=== PATIENT | female | born 1995 | race Caucasian/White ===

== ENCOUNTER 2019-05-13 09:31 | Emergency (ER) | payer BC ==
[2019-05-13 10:45] VITALS: BP 124/76
--- NOTE | 2019-05-13 10:59 | UC ---
Lower Extremity/Ankle HPI - HPI Summary HPI Summary: 23-year-old female who states her right ankle gave out today. She sprained it approximately 3 weeks ago, followed up at a different urgent care and had a negative x-ray. She did not follow-up with an orthopedist. - History of Current Complaint Chief Complaint: UCLowerExtremity Stated Complaint: R ANKLE INJURY Time Seen by Provider: 05/13/19 10:56 Hx Obtained From: Patient Hx Last Menstrual Period: last month ?: No Onset/Duration: Sudden Onset Severity Initially: Mild Severity Currently: Mild Pain Intensity: 4 Aggravating Factor(s): Ambulation Alleviating Factor(s): Rest Able to Bear Weight: Yes - Allergies/Home Medications Allergies/Adverse Reactions: Allergies Allergy/AdvReac Type Severity Reaction Status Date / Time "an oxy" after surgery Allergy Hives Uncoded 05/13/19 10:44 Home Medications: Home Medications Bupropion XL* [Wellbutrin XL *] 1 tab PO DAILY 05/13/19 [History Confirmed 05/13] Green Tea Extract 1 dose PO ONCE 05/13/19 [History Confirmed 05/13/19] Ibuprofen 400 mg PO ONCE PRN 05/13/19 [History Confirmed 05/13/19] Lisdexamfetamine Dimesylate [Vyvanse] 1 tab PO DAILY 05/13/19 [History Confirmed 05/13/19] QUEtiapine TAB* [Seroquel 100 MG *] 50 mg PO DAILY 05/13/19 [History Confirmed 05/13/19] Sertraline HCl [Zoloft] 150 mg PO DAILY 05/13/19 [History Confirmed 05/13/19] PMH/Surg Hx/FS Hx/Imm Hx Previously Healthy: Yes - Surgical History Surgical History: Yes Surgery Procedure, Year, and Place: sinus/nasal surgery - Family History Known Family History: Positive: Non-Contributory - Social History Alcohol Use: Weekly Substance Use Type: None Smoking Status (MU): Never Smoked Tobacco Review of Systems All Other Systems Reviewed And Are Negative: Yes Skin: Positive: Bruising - Mild bruising around her ankle which appears old. Motor: Positive: Negative Neurovascular: Positive: Negative Musculoskeletal: Positive: Negative Neurological: Positive: Negative Is Patient Immunocompromised?: No Physical Exam Triage Information Reviewed: Yes Appearance: Well-Appearing, No Pain Distress, Well-Nourished Vital Signs: Initial Vital Signs Temp 98.3 F 05/13/19 10:40 Pulse 92 05/13/19 10:40 Resp 18 05/13/19 10:40 BP 124/76 05/13/19 10:40 Pulse Ox 100 05/13/19 10:40 Vital Signs Reviewed: Yes Musculoskeletal: Positive: Strength Intact, ROM Intact - Achilles is intact. Mild swelling to the lateral right ankle. Patient has some mild bruising which is old around the ankle. The base of the first and fifth metatarsals are nontender. Neurological: Positive: Alert, Muscle Tone Normal Psychological Exam: Normal Skin: Positive: Other - See above notes Lower Extremity Course/Dx - Course Course Of Treatment: Right ankle x-ray:VIEWS: 3, Frontal, lateral, and oblique views of the right ankle FINDINGS: BONE DENSITY: Normal. BONES: There is no displaced fracture. JOINTS: There is no arthropathy. There is a joint effusion. ALIGNMENT: There is no dislocation. SOFT TISSUES: Unremarkable. OTHER FINDINGS: None. IMPRESSION: JOINT EFFUSION. NO ACUTE OSSEOUS INJURY. IF SYMPTOMS PERSIST, RECOMMEND REPEAT IMAGING. The patient has her own ankle splint and she is to apply that and wear that for comfort. I did advise her to that if her ankle feels unsteady or feels like is giving out frequently she needs to follow-up with the orthopedist for further care. She is in agreement with this plan of action. - Differential Dx/Diagnosis Provider Diagnosis: Right ankle sprain Discharge ED - Sign-Out/Discharge Documenting (check all that apply): Patient Departure All imaging exams completed and their final reports reviewed: Yes - Discharge Plan Condition: Good Disposition: HOME Patient Education Materials: Ankle Sprain (DC) Referrals: No Primary Care Phys,NOPCP [Primary Care Provider] - Miryam Lentz MD [Medical Doctor] - Additional Instructions: Continue to wear your splint. Apply ice intermittently and elevate as much as possible. May ambulate as pain permits. Definite follow-up with an orthopedist if you're ankle continues to give out easily. - Billing Disposition and Condition Condition: GOOD Disposition: Home
== END 2019-05-13 12:00 | disposition home or self-care (01) ==
LOC: UCEAST 09:31
DX: S93.401A Sprain of unspecified ligament of right ankle, initial encounter (principal); Z91.09 Other allergy status, other than to drugs and biological substances; X58.XXXA Exposure to other specified factors, initial encounter; Y92.9 Unspecified place or not applicable
CPT/HCPCS: 99211; G0463

== ENCOUNTER 2019-06-08 10:17 | Emergency (ER) | payer BC ==
--- NOTE | 2019-06-08 11:58 | ED ---
Syncope/Near Syncope - HPI Summary HPI Summary: Patient is a 23 y/o F presenting to the ED for a chief complaint of syncope that occurred the morning of 06/08/19. Patient notes she felt dizziness, lightheadedness, headache, nausea, and vomiting prior to having a syncopal episode. She reports having 2-3 episodes of vomiting and having a headache that lasted 2 hours before resolving. Patient is unsure if she lost consciousness and states the syncopal episode was unwitnessed. Her symptoms have now resolved. She also admits sleep disturbance that she attributes to recent stress from school. Patient denies fever, myalgia, abdominal pain, diarrhea, constipation, or weakness. She denies having a similar episode of syncope or headache in the past. PMHx is significant for anxiety, depression, and ADHD for which she takes medication. PSHx is significant for nasal surgery in 2018. FMHx is significant for stroke and cardiac problems, but denies any unexplained in her family. LNMP was 2 weeks ago. Patient denies tobacco or drug use, but admits weekly alcohol use. 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 Allergies noted. Medications reviewed. - History Of Current Complaint Chief Complaint: EDSyncope Time Seen by Provider: 06/08/19 11:49 Hx Obtained From: Patient Onset/Duration: Sudden Onset, Resolved Timing: Constant Context: Unwitnessed Activity At Onset: At Rest Associated Head Trauma: No Aggravating Factor(s): Nothing Alleviating Factor(s): Spontaneous Resolution Associated Signs And Symptoms: Dizzy, Headache, Lightheadedness, Vomiting - Allergies/Home Medications Allergies/Adverse Reactions: Allergies Allergy/AdvReac Type Severity Reaction Status Date / Time "an oxy" after surgery Allergy Hives Uncoded 05/13/19 10:44 PMH/Surg Hx/FS Hx/Imm Hx Previously Healthy: Yes Endocrine/Hematology History: Denies: Hx Diabetes Cardiovascular History: Denies: Hx Hypercholesterolemia, Hx Hypertension, Hx Myocardial Infarction Sensory History: Denies: Hx Legally Blind, Hx Deafness Opthamlomology History: Denies: Hx Legally Blind EENT History: Denies: Hx Deafness Psychiatric History: Reports: Hx Anxiety, Hx Attention Deficit Hyperactivity Disorder, Hx Depression - Surgical History Surgical History: Yes Surgery Procedure, Year, and Place: sinus/nasal surgery Infectious Disease History: No Infectious Disease History: Denies: Traveled Outside the [place] in Last 30 Days - Family History Known Family History: Positive: Other - Stroke - Social History Occupation: Student Lives: Alone Alcohol Use: Weekly Hx Substance Use: No Substance Use Type: Reports: None Hx Tobacco Use: No Smoking Status (MU): Never Smoked Tobacco Review of Systems Negative: Fever Positive: Vomiting, Nausea. Negative: Abdominal Pain, Diarrhea Negative: Myalgia Neurological: Other - Positive dizziness and lightheadedness Positive: Headache - Resolved, Syncope. Negative: Weakness All Other Systems Reviewed And Are Negative: Yes Physical Exam - Summary Physical Exam Summary: Constitutional: Well-developed, Well-nourished, Alert. (-) Distressed Skin: Warm, Dry HENT: Normocephalic; Atraumatic. Dry oral mucosa. Eyes: Conjunctiva normal Neck: Musculoskeletal ROM normal neck. (-) JVD, (-) Stridor, (-) Tracheal deviation Cardio: Rhythm regular, rate normal, Heart sounds normal; Intact distal pulses; Radial pulses are 2+ and symmetric. (-) Murmur Pulmonary/Chest wall: Effort normal. (-) Respiratory distress, (-) Wheezes, (-) Rales Abd: Soft, (-) tenderness, (-) Distension, (-) Guarding, (-) Rebound Musculoskeletal: (-) Edema Lymph: (-) Cervical adenopathy Neuro: Alert, Oriented x3 Psych: Mood and affect Normal Triage Information Reviewed: Yes Vital Signs On Initial Exam: Initial Vitals Temp Pulse Resp BP Pulse Ox 98.4 F 100 16 166/111 99 06/08/19 10:19 06/08/19 10:19 06/08/19 10:19 06/08/19 10:19 06/08/19 10:19 Vital Signs Reviewed: Yes Procedures - Sedation Patient Received Moderate/Deep Sedation with Procedure: No Diagnostics - Vital Signs Vital Signs Temp Pulse Resp BP Pulse Ox 06/08/19 10: 98.4 F 100 16 166/111 99 - Laboratory Result Diagrams: 06/08/19 12:24 06/08/19 12:24 Lab Statement: Any lab studies that have been ordered have been reviewed, and results considered in the medical decision making process. - EKG 10:24 Cardiac Rate: NL - 88 BPM EKG Rhythm: Sinus Rhythm ST Segment: Normal Ectopy: None Summary of EKG Findings: EKG at 10:24 shows 88 BPM with normal sinus rhythm, no STEMI. Reviewed and interpreted by Dr. Casillas. Course/Dx Course Of Treatment: Patient is here with a syncopal episode while vomiting. Patient is overall well-appearing arrival here with a normal neurologic exam. Patient had blood performed which was grossly unremarkable. Patient is likely suffering from a mild virus in the setting of not sleeping due to school stress. Patient also states she has not been eating or drinking as much due to stress. Patient's EKG was not concerning for any underlying arrhythmia. - Diagnoses Provider Diagnoses: Syncope, Nausea and vomiting, Dehydration Discharge ED - Sign-Out/Discharge Documenting (check all that apply): Patient Departure - Discharge - Discharge Plan Condition: Stable Disposition: HOME Prescriptions: Ondansetron TAB* [Zofran 4 MG Tab*] 4 mg PO Q8HR PRN #12 tab PRN Reason: Vomiting Patient Education Materials: Dehydration (ED), Acute Nausea and Vomiting (ED) Forms: *Gen. Provider Communication Referrals: [facility] [Outside] [facility] [[employer], APPLICATION, OTHER] - Additional Instructions: TAKE YOUR NAUSEA MEDICATIONS PRESCRIBED. RETURN TO THE EMERGENCY DEPARTMENT FOR ANT CHEST PAIN, HEART RACING, OR TROUBLE BREATHING. FOLLOW UP WITH [facility] WITHIN 1-3 DAYS. STAY HYDRATED WITH PEDIALYTE. - Billing Disposition and Condition Condition: STABLE Disposition: Home - Attestation Statements Document Initiated by Hansibe: Yes Documenting Scribe: Angélica Fallon Provider For Whom Scribe is Documenting (Include Credential): Len Casillas MD Scribe Attestation: Angélica Alex, scribed for Len Casillas MD on 06/08/19 at 1807. Scribe Documentation Reviewed: Yes Provider Attestation: The documentation as recorded by the Angélica sewell accurately reflects the service I personally performed and the decisions made by me, Len Casillas MD Status of Scribe Document: Viewed
[2019-06-08] MEDS ORDERED: Morphine 4 MG/ML VIAL (1 ml) 4 MG/ML VIAL IV ONE (11:59)
[2019-06-08] MEDS ORDERED: NS 0.9% 1000 ML** 1,000 ML IV ONE (11:59)
--- NOTE | 2019-06-08 12:00 | ED ---
Complex/Multi-Sys Presentation - History Of Current Complaint Chief Complaint: EDSyncope Time Seen by Provider: 06/08/19 11:49 - Allergies/Home Medications Allergies/Adverse Reactions: Allergies Allergy/AdvReac Type Severity Reaction Status Date / Time "an oxy" after surgery Allergy Hives Uncoded 05/13/19 10:44 PMH/Surg Hx/FS Hx/Imm Hx - Surgical History Surgery Procedure, Year, and Place: sinus/nasal surgery Infectious Disease History: No Infectious Disease History: Denies: Traveled Outside the [place] in Last 30 Days - Family History Known Family History: Positive: Non-Contributory - Social History Alcohol Use: Weekly Substance Use Type: Reports: None Smoking Status (MU): Never Smoked Tobacco Physical Exam Vital Signs On Initial Exam: Initial Vitals Temp Pulse Resp BP Pulse Ox 98.4 F 100 16 166/111 99 06/08/19 10:19 06/08/19 10:19 06/08/19 10:19 06/08/19 10:19 06/08/19 10:19 Diagnostics - Vital Signs Vital Signs Temp Pulse Resp BP Pulse Ox 06/08/19 10:19 98.4 F 100 16 166/111 99 - Laboratory Lab Statement: Any lab studies that have been ordered have been reviewed, and results considered in the medical decision making process. Discharge ED - Discharge Plan Referrals: No Primary Care Phys,NOPCP [Primary Care Provider] - - Attestation Statements Document Initiated by Scribe: Yes
[2019-06-08] MEDS ORDERED: Ondansetron INJ* 2 MG/ML VIAL IV ONE (12:37)
[2019-06-08 12:49] LABS: ABS Eosinophils 0.5 10^3/ul (0-0.6); ABS Lymphocytes 1.7 10^3/ul (1.0-4.8); ABS Monocytes 0.4 10^3/ul (0-0.8); ABS Neutrophils 5.2 10^3/ul (1.5-7.7); Eosinophil % 6.3 %; Hematocrit 45 % (35-47); Hemoglobin 15.2 g/dL (12.0-16.0); Lymphocyte % 21.7 %; Mean Corpuscular HGB Conc 34 g/dL (31-36); Mean Corpuscular Hemoglobin 31 pg (27-31); Mean Corpuscular Volume 90 fL (80-97); Mean Platelet Volume 7.8 fL (7.4-10.4); Nucleated Red Blood Cells % 0.2; Platelet Count 278 10^3/uL (150-450); Red Blood Count 4.99 10^6 /uL (3.70-4.87); Red Cell Distribution Width 13 % (10-15); White Blood Count 7.9 10^3/uL (3.5-10.8)
[2019-06-08 12:54] LABS: Anion Gap 9 mmol/L (2-11); BUN/Creatinine Ratio 7.8 (8-20); Blood Urea Nitrogen 6 mg/dL (6-24); CO2 Carbon Dioxide 26 mmol/L (22-32); Calcium 10.1 mg/dL (8.6-10.3); Chloride 102 mmol/L (101-111); EGFR African American 112.4 (>60); EGFR Non-African American 92.9 (>60); Glucose 101 mg/dL (70-100); Potassium 3.9 mmol/L (3.5-5.0); Sodium 137 mmol/L (135-145)
[2019-06-08 13:02] LABS: HCG Pregnancy < 0.60 mIU/mL
[2019-06-08 13:51] VITALS: BP 134/93
== END 2019-06-08 13:50 | disposition home or self-care (01) ==
LOC: ED 10:17
DX: R55 Syncope and collapse (principal); R11.2 Nausea with vomiting, unspecified; E86.0 Dehydration; F41.9 Anxiety disorder, unspecified; F32.9 Major depressive disorder, single episode, unspecified; F90.9 Attention-deficit hyperactivity disorder, unspecified type; Z79.899 Other long term (current) drug therapy
CPT/HCPCS: 36415; 80048; 84484; 84702; 85025; 93005; 96361; 96374; 99282; J2405